=== PATIENT | male | born 1960 | race Caucasian/White ===

== ENCOUNTER 2021-02-01 10:05 | Day surgery (SDC) | payer OTHER ==
[2021-02-01] VITALS (8 sets, daily range): BP systolic 78–121; BP diastolic 40–80
[~2021-02-01] VITALS: Ht 193 cm; Wt 131.5 kg
[~2021-02-01 10:05] MED LIST: ALPR1TAB2 PO; CARV25TA PO; CITA-107 PO; LISI1TAB29 PO; ROSU20TA23 PO
[2021-02-01] MEDS ORDERED: SODIUM CHLORIDE 0.9% 1000ML 1,000 ML IV ONE (11:37)
[2021-02-01] MEDS ORDERED: NAPR220C15 PO (11:48)
[2021-02-01] MEDS ORDERED: LOSA1TAB42 PO (11:48)
[2021-02-01] MEDS ORDERED: PHEN37.591 PO (11:48)
[2021-02-01] MEDS ORDERED: FAMO20TA8 PO (11:48)
[2021-02-01] MEDS ORDERED: TOPI50TA24 PO (11:48)
[2021-02-01] MEDS ORDERED: TRAZ150T79 PO (11:48)
[2021-02-01] MEDS ORDERED: SUMA100T PO (11:48)
[2021-02-01] MEDS ORDERED: PROPOFOL 10 MG/ML 20ML VIAL IV ONE (12:40)
== END 2021-02-01 14:34 | disposition home or self-care (01) ==
LOC: DAH 10:05 → ENDO 10:05
PROVIDERS: ATTEND Internal Medicine Gastroenterology
DX: R19.4 Change in bowel habit (principal); R19.7 Diarrhea, unspecified; K21.00 Gastro-esophageal reflux disease with esophagitis, without bleeding; K44.9 Diaphragmatic hernia without obstruction or gangrene; K64.0 First degree hemorrhoids; K63.5 Polyp of colon; K62.1 Rectal polyp; I10 Essential (primary) hypertension; E78.5 Hyperlipidemia, unspecified; K21.9 Gastro-esophageal reflux disease without esophagitis; F41.9 Anxiety disorder, unspecified; Z88.0 Allergy status to penicillin; Z98.890 Other specified postprocedural states; Z87.891 Personal history of nicotine dependence; Z90.49 Acquired absence of other specified parts of digestive tract; Z86.010 Personal history of colon polyps; Z87.19 Personal history of other diseases of the digestive system; Z82.49 Family history of ischemic heart disease and other diseases of the circulatory system; Z82.3 Family history of stroke
CPT/HCPCS: 43248; 45380; A4215; A4221; A4222; A4223; A4606; A4663; J2704; J7030 ×2

== ENCOUNTER → 2023-03-03 | Outpatient (CLI) | payer OTHER ==
[~2023-03-03] MED LIST changes: +GADOTERATE MEGLUMINE 5 MMOL/10 ML VIAL IV ONE; +IOHEXOL 180 MG/ML 20 ML VIAL ONE; +LIDOCAINE HCL 1% 20 ML VIAL ONE; -LISI1TAB29 PO; +LISI1TAB53 PO; +LOSA1TAB42 PO; +NAPR220C15 PO; +PHEN37.596 PO; +SUMA100T PO; +TOPI-255 PO; +TRAZ150T79 PO
== END | disposition home or self-care (01) ==
LOC: RAH 08:10
PROVIDERS: ATTEND Student in an Organized Health Care Education/Training Program
DX: M25.812 Other specified joint disorders, left shoulder (principal); M25.512 Pain in left shoulder; M67.814 Other specified disorders of tendon, left shoulder
CPT/HCPCS: 73223; 77002; 23350; Q9965; A9575